=== PATIENT | female | born 1935 | race Caucasian/White ===

== ENCOUNTER 2016-10-02 09:08 | Emergency (ER) | payer MEDICARE, OTHER ==
[2016-10-02 09:15] VITALS: BP 136/69
== END 2016-10-02 10:05 | disposition home or self-care (01) ==
LOC: ER 09:08
DX: R45.851 Suicidal ideations (principal); Z53.21 Procedure and treatment not carried out due to patient leaving prior to being seen by health care provider

== ENCOUNTER → 2021-02-23 | Outpatient (CLI) | payer MEDICARE, OTHER ==
--- NOTE | 2021-02-23 14:37 | RAD ---
EXAM: Left lower extremity venous Doppler sonogram. HISTORY: Pain and swelling. Elevated d-dimer. TECHNIQUE: Good scale and color Doppler sonographic evaluation of the left lower extremity veins with spectral waveform analysis was performed. FINDINGS: The superficial femoral vein is small in caliber. This limits evaluation. The patient was a lso unable to tolerate compression maneuvers due to discomfort, limiting evaluation. The deep femoral vein appears to communicate with the mid superficial femoral vein. There is no convincing venous thr ombosis. IMPRESSION: No Doppler evidence of lower extremity deep venous thrombosis, with limited evaluation of the superficial femoral vein due to small vein caliber and patient discomfort during imaging. Electronically signed by: Zahraa Marte MD (02/23/2021 2:34 PM) [id number]
== END ==
LOC: US 13:53
PROVIDERS: ATTEND Family Medicine
DX: R60.9 Edema, unspecified (principal); R79.89 Other specified abnormal findings of blood chemistry
CPT/HCPCS: 93971